=== PATIENT | male | born 2000 | race Caucasian/White ===

== ENCOUNTER → 2022-10-11 08:19 | Outpatient (BNVA) | payer OTHER, MEDICAID, SELFPAY | PROVIDERS: Referring Provider Nurse Practitioner Family; Visit Provider Orthopaedic Surgery | DX: R22.32 Localized swelling, mass and lump, left upper limb (principal) | CPT/HCPCS: 73130 ==

== ENCOUNTER 2022-10-19 06:11 | Day surgery (SDC) | payer OTHER, SELFPAY ==
[2022-10-18 15:56] VITALS: BMI 34.0
[2022-10-19] VITALS (9 sets, daily range): BP systolic 110–156; BP diastolic 65–103; PULSE 82–92; RESP 14–17; TEMP 36.7–36.9; O2SAT 95–100
[2022-10-19] MEDS: sodium chloride 0.9% 1,000 ML 30 ML IV (07:15)
--- NOTE | 2022-10-19 08:12 | W.PM.OPSUD ---
Surgery/Procedure H&P Update DATE OF PROCEDURE: October 19, 2022 DATE H&P PERFORMED: 10/11/22 H&P UPDATE INFORMATION: I have reviewed H&P completed within last 30 days PREOP DIAGNOSIS: Mass left thumb PLANNED PROCEDURE: Operation Date: 10/19/22 08:10 Proposed Procedures p mass excision left thumb/ 19552,R22.30(Left) - Lc March MD
[2022-10-19] MEDS: clindamycin 600 MG/50 ML PREMIX 100 MG IV (08:24)
--- NOTE | 2022-10-19 09:05 | PM.OP ---
Operative Report Date of procedure: October 19, 2022 Pre-op diagnosis: Preop Diagnosis Mass left thumb Post-op diagnosis: same Procedure done: Excision mass left thumb Specimens removed/disposition: Mass sent for surgical pathology Pathology: other Pathology: Mass sent for surgical pathology Anesthesia: General Estimated blood loss (mL): 2 Tourniquet time (min): 5 Findings: The patient had a 5 x 8 mm hemosiderin stained fibrous mass adherent to the dorsal and ulnar extensor francisco of the left thumb at the level of the MCP joint. Condition: stable Disposition: PACU Procedure: The patient was taken the operating room and sedated by the anesthesia service. The skin over the mass was infiltrated with 2 cc of half percent Marcaine. A timeout was performed. Tourniquet was inflated to 250 mmHg. A 15 mm long incision was made over the dorsal aspect of the mass and dissection carried down bluntly under loupe magnification revealing the solid hemosiderin stained mass. Utilizing scissors the mass was circumferentially freed from soft tissue dorsally medially and laterally. It was then elevated with scissors off the extensor francisco. The tourniquet was deflated. Hemostasis provided with bipolar cautery. The incision was closed with interrupted and simple 3-0 Prolene sutures. Xeroflo gauze 4 x 4's compressive Webril and an David wrap were applied. The patient was taken recovery in stable condition.
--- NOTE | 2022-10-19 14:00 | ANES.PREANE2 ---
Pre-Anesthetic Assessment Height/Weight: Height 1.75 m Weight 104.326 kg Temp Pulse Resp BP Pulse Ox O2 Del Method 98.4 F 82 17 118/72 97 10/19/22 09:53 10/19/22 09:53 10/19/22 09:53 10/19/22 09:53 10/19/22 09:53 10/19/22 09:53 Preop Diagnosis: Mass left thumb Operation Date: 10/19/22 08:10 Proposed Procedures p mass excision left thumb/ 43133,R22.30(Left) - Lc March MD Familial anesthetic complications: none Was Beta Danie taken within 24 hours: N/A Was Clonidine taken within 24 hours: N/A Last intake: Intake Last Liquid Date 10/18/22 Last Liquid Time 20:30 Last Solid Date 10/18/22 Last Solid Time 20:30 Social No alcohol and No tobacco Exam alert, oriented x 3, clear to auscultation bilaterally and regular rate & rhythm Airway Submandibular: within normal limits Cervical ROM: within normal limits Mallampati: Class II Dentition: full History/ROS No significant history except as noted Metabolic Morbid Obesity Anesthetic Plan ASA status: 2 Anesthesia: Choice Medications/Allergies Home Medications Medication Instructions Recorded Confirmed Last Taken Type hydrocodone 5 mg-acetaminophen 325 1 tab PO Q4H #10 tabs 10/19/22 Unknown Rx mg tablet Allergies Allergy/AdvReac Type Severity Reaction Status Date / Time amoxicillin Allergy Unknown Verified 10/19/22 06:54 cephalexin [From Keflex] Allergy Unknown Verified 10/19/22 06:54 codeine Allergy Unknown Verified 10/19/22 06:54 PFSH Anesthesia Social History (Updated 10/11/22 @ 08:15 by Bucky Tyler LPN) Smoking and tobacco status: never smoked Alcohol intake: never Data Anesthesia Cardiac Studies: No Data to Display
--- NOTE | 2022-10-19 16:01 | ANE.PACU2 ---
Inpatient post-anesthesia follow up: Airway intact: Yes Vital signs: Temperature 98.4 F Pulse Rate 82 Respiratory Rate 17 Blood Pressure 118/72 Pulse Oximetry 97 Oxygen Delivery Me thod Room Air Oxygen Flow Rate Fraction of Inspir ed Oxygen Hydration adequate: Yes Nausea and vomiting: No Pain level: 1 Mental status: Baseline
== END 2022-10-19 10:00 | disposition home or self-care (01) ==
PROVIDERS: Visit Provider Orthopaedic Surgery
PROC: (CPT 26116; principal; 2022-10-19 08:00)
DX: R22.32 Localized swelling, mass and lump, left upper limb (principal); E66.01 Morbid (severe) obesity due to excess calories; Z68.34 Body mass index [BMI] 34.0-34.9, adult
CPT/HCPCS: 26116; 88307; J2250; J2704; J3010; J3490; J7030